=== PATIENT | male | born 1990 | race Caucasian/White ===

== ENCOUNTER 2017-12-25 13:29 | Emergency (ER) | payer OTHER ==
[2017-12-25 13:35] VITALS: BP 139/78; PULSE 85; TEMP 98.6
[2017-12-25 13:56] VITALS: RESP 16
[2017-12-25] MEDS ORDERED: KETOROLAC 30 MG/ML 1 ML VIAL IM STA (14:07)
--- NOTE | 2017-12-25 14:14 | ED ---
Chest Pain HPI - General Chief Complaint: Chest Pain Stated Complaint: rt rib pain Time Seen by Provider: 12/25/17 13:57 Source: patient Mode of arrival: ambulatory Limitations: no limitations - History of Present Illness Initial Comments: REY is a 27-year-old male presenting for right sided rib pain. He states that for the last couple weeks, he has been having intermittent coughing and had chills couple days ago but no fevers. He also denies any significant past medical problems and states that he does have ALLERGIES. He does feel a little bit short of breath but none now. Pt also denies any prolonged periods of immobility, CA, DVT/PE, estrogen use, or recent surgery. Patient states that the pain is a sharp crampy sensation that is worse with coughing, breathing, movement and very positional. Patient denies any chest pain - Related Data Previous Rx's Medication Instructions Recorded Ibuprofen [Motrin] 800 mg PO Q6HR PRN #20 tab 06/20/14 Albuterol Inhaler [Ventolin Hfa 1 - 2 puff INHALATION Q6HR PRN #1 12/25/17 Inhaler] inhaler Ibuprofen [Motrin] 400 mg PO Q6HR PRN #20 tab 12/25/17 Lidocaine 5% Patch [Lidoderm] 1 patch TOPICAL DAILY #5 patch 12/25/17 Methocarbamol [Robaxin] 500 mg PO TID #20 tab 12/25/17 Allergies Allergy/AdvReac Type Severity Reaction Status Date / Time No Known Allergies Allergy Verified 12/25/17 13:35 Review of Systems ROS Statement: Those systems with pertinent positive or pertinent negative responses have been documented in the HPI. Constitutional: Negative for chills, fatigue and fever. HENT: Negative for congestion. Respiratory: Negative for chest tightness, and wheezing. Positive for cough and shortness of breath Cardiovascular: Negative for chest pain and palpitations. Gastrointestinal: Negative for abdominal pain. Negative for abdominal distention , diarrhea, nausea and vomiting. Genitourinary: Negative for dysuria. Musculoskeletal: Negative for back pain, neck pain and neck stiffness. Positive for right rib pain Skin: Negative for color change. Neurological: Negative for dizziness, speech difficulty, weakness and light- headedness. Psychiatric/Behavioral: Negative for agitation and confusion. The patient is not nervous/anxious. ROS Other: All systems not noted in ROS Statement are negative. Past Medical History Past Medical History: No Reported History History of Any Multi-Drug Resistant Organisms: None Reported Past Surgical History: No Surgical Hx Reported Past Psychological History: Anxiety Smoking Status: Current every day smoker Past Alcohol Use History: Daily Past Drug Use History: Marijuana General Exam - General Exam Comments Initial Comments: Constitutional: Pt is oriented to person, place, and time. Pt appears well- developed and well-nourished. No distress. HENT: Head: Normocephalic and atraumatic. Eyes: EOM are normal. Neck: Normal range of motion. Neck supple. Cardiovascular: Normal rate, regular rhythm, S1 normal, S2 normal and normal heart sounds. Exam reveals no gallop and no friction rub. No murmur heard. Pulmonary/Chest: Effort normal and breath sounds normal. No tachypnea and no bradypnea. No respiratory distress. No rales noted. Faint bilateral wheezes noted at lung bases Abdominal: Soft. Bowel sounds are normal. Pt exhibits no shifting dullness, no distension, no pulsatile liver, no fluid wave, no abdominal bruit and no ascites. There is no tenderness. There is no rigidity, no rebound, no guarding, no tenderness at McBurney's point and negative Du's sign. Musculoskeletal: Normal range of motion. Tenderness to palpation on the right side that is reproducible along ribs 5 through 8 Neurological: Pt is alert and oriented to person, place, and time. No cranial nerve deficit. Skin: Skin is warm and dry. No rash noted. Pt is not diaphoretic. No erythema. No pallor. Psychiatric: Pt has a normal mood and affect. Pt behavior is normal. Thought content normal. Limitations: no limitations Course Vital Signs 12/25/17 12/25/17 13:32 13:54 Temperature 98.6 F Pulse Rate 85 Respiratory 18 16 Rate Blood Pressure 139/78 O2 Sat by Pulse 99 Oximetry Chest Pain MDM - MDM Patient had tenderness along the lower ribs that is reproducible worse with movement. It was explained to this is likely secondary to musculoskeletal strain and chest x-ray would not be warranted. Also, because the patient denied any chest pain or shortness of breath, EKG was not performed. Explained all labs and diagnostic test results and that we will discharge the patient home and patient is to follow up with PCP in 1-2 days and return to the ED if symptoms worsen. Pt is agreeable to plan. Disposition Clinical Impression: Rib pain on right side, Cough Disposition: HOME SELF-CARE Condition: Good Instructions: Costochondritis (ED) Prescriptions: Albuterol Inhaler [Ventolin Hfa Inhaler] 1 - 2 puff INHALATION Q6HR PRN #1 inhaler PRN Reason: Cough Ibuprofen [Motrin] 400 mg PO Q6HR PRN #20 tab PRN Reason: Pain Lidocaine 5% Patch [Lidoderm] 1 patch TOPICAL DAILY #5 patch Methocarbamol [Robaxin] 500 mg PO TID #20 tab Is patient prescribed a controlled substance at d/c from ED?: No Referrals: None,Stated [Primary Care Provider] - 1-2 days Time of Disposition: 14:12
== END 2017-12-25 14:44 | disposition home or self-care (01) ==
LOC: EC 13:29
DX: R07.81 Pleurodynia (principal); R05 Cough; R68.83 Chills (without fever); R06.2 Wheezing; F17.200 Nicotine dependence, unspecified, uncomplicated
CPT/HCPCS: 99284; 96372; J1885

== ENCOUNTER 2019-03-16 12:20 | Emergency (ER) | payer OTHER ==
[2019-03-16 12:46] VITALS: TEMP 97.7
[2019-03-16 13:58] VITALS: BP 126/56; PULSE 106; RESP 20
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
== END 2019-03-16 14:32 | disposition home or self-care (01) ==
LOC: EC 12:20
DX: R20.2 Paresthesia of skin (principal); F41.9 Anxiety disorder, unspecified; F17.200 Nicotine dependence, unspecified, uncomplicated; F12.929 Cannabis use, unspecified with intoxication, unspecified; K14.8 Other diseases of tongue
CPT/HCPCS: 99283

== ENCOUNTER 2019-04-26 21:44 | Emergency (ER) | payer OTHER ==
[2019-04-26] MEDS ORDERED: ERYTHROMYCIN 5 MG/GM OPHTH OINT 3.5 GM TUBE BOTH EYES STA (23:09)
--- NOTE | 2019-04-26 23:10 | ED ---
Eye Problem HPI - General Source: patient Mode of arrival: ambulatory Limitations: no limitations <Nena Dexter - Last Filed: 04/27/19 00:00> <Vandana Mauricio - Last Filed: 04/28/19 02:43> - General Chief complaint: Eye Problems Stated complaint: eye irritation Time Seen by Provider: 04/26/19 22:10 - History of Present Illness Initial comments: 29-year-old male presents emergency room for chief complaint of bilateral eye redness. Patient states both eyes feel irritated. He states he does smoke marijuana but denies do not usually feel this irritated. He states they feel dry. He states he does have some light sensitivity. Patient denies any eye pain. He denies any swelling around the eyes. Extraocular eye movements. Patient denies any vision loss or vision or diplopia. Patient denies any headache, welding, grindings, foreign body sensation, autoimmune diseases, recent travel sick contacts fevers or flulike symptoms. Patient has no other complaints, remaining ROS (-). (Nena Dexter) - Related Data Previous Rx's Medication Instructions Recorded Erythromycin Ophth Oint [Romycin 1 applic LEFT EYE QID 3 Days #1 04/26/19 Ophth Oint] tube Allergies Allergy/AdvReac Type Severity Reaction Status Date / Time No Known Allergies Allergy Verified 04/26/19 21:58 Review of Systems ROS Other: All systems not noted in ROS Statement are negative. <Nena Dexter - Last Filed: 04/27/19 00:00> ROS Other: All systems not noted in ROS Statement are negative. <Vandana Mauricio - Last Filed: 04/28/19 02:43> ROS Statement: Those systems with pertinent positive or pertinent negative responses have been documented in the HPI. Past Medical History Past Medical History: No Reported History History of Any Multi-Drug Resistant Organisms: None Reported Past Surgical History: No Surgical Hx Reported Past Psychological History: Anxiety Smoking Status: Current every day smoker Past Alcohol Use History: None Reported Past Drug Use History: Cocaine, Marijuana <Nena Dexter - Last Filed: 04/27/19 00:00> General Exam Limitations: no limitations <Nena Dexter - Last Filed: 04/27/19 00:00> - General Exam Comments Initial Comments: General: The patient is awake and alert, in no distress, and does not appear acutely ill. Eye: +3 mm pupils are equal, round and reactive to light, extra-ocular movements are intact. No nystagmus. There is normal conjunctiva bilaterally. No signs of icterus. No areas of uptake of fluorescein examination. No pain with extraocular eye movements. Minimal photophobia. Patient has conjunctival injection bilaterally. IOP15 OU. Ears, nose, mouth and throat: There are moist mucous membranes and no oral lesions. Neck: The neck is supple, there is no tenderness or JVD. Cardiovascular: There is a regular rate and rhythm. No murmur, rub or gallop is appreciated. Respiratory: Lungs are clear to auscultation, respirations are non-labored, breath sounds are equal. No wheezes, stridor, rales, or rhonchi. Gastrointestinal: Soft, non-distended, non-tender abdomen without masses or organomegaly noted. There is no rebound or guarding present. Musculoskeletal: Normal ROM, no tenderness. Strength 5/5. Sensation intact. Pulses equal bilaterally 2+. Neurological: A&O x 3. CN II-XII intact, There are no obvious motor or sensory deficits. Coordination appears grossly intact. Speech is normal. Skin: Skin is warm and dry and no rashes or lesions are noted. Psychiatric: Cooperative, appropriate mood & affect, normal judgment. (Nena Dexter) Course Vital Signs 04/26/19 04/26/19 21:54 23:27 Temperature 97.6 F 97.2 F L Pulse Rate 121 H 88 Respiratory 18 20 Rate Blood Pressure 119/71 116/68 O2 Sat by Pulse 99 99 Oximetry Medical Decision Making <Nena Dexter - Last Filed: 04/27/19 00:00> <Vandana Mauricio - Last Filed: 04/28/19 02:43> - Medical Decision Making 29yo male presenting to the ER for evaluation of b/l eye redness, hx of marijuana use. Patient may have corneal irritation. Patient evaluated by Dr. Mauricio who recommended erythromycin lubricant eyedrop. Patient is agreeable to this care plan patient is given ophthalmology follow-up. Return parameters were discussed the patient was discharged appearing well (Nena Dexter) I personally saw and evaluated the patient. I suspect the patient has a chemical conjunctivitis secondary to smoke exposure. However patient's been rubbing his eyes a lot Will treat. Please with erythromycin ointment for symptomatically care and prevention of bacterial conjunctivitis. (Vandana Mauricio) Disposition Is patient prescribed a controlled substance at d/c from ED?: No Time of Disposition: 23:09 <Nena Dexter - Last Filed: 04/27/19 00:00> <Vandana Mauricio - Last Filed: 04/28/19 02:43> Clinical Impression: Conjunctivitis Disposition: HOME SELF-CARE Instructions (If sedation given, give patient instructions): Eye Lubricant (Into the eye), Conjunctivitis (ED) Additional Instructions: Please use medication as discussed. Please follow-up with ophthalmology in one to 2 days. Please return to emergency room if the symptoms increase or worsen or for any other concerns. Prescriptions: Erythromycin Ophth Oint [Romycin Ophth Oint] 1 applic LEFT EYE QID 3 Days #1 tube Referrals: None,Stated [Primary Care Provider] - 1-2 days Jaylen Chun MD [STAFF PHYSICIAN] - 1-2 days
[2019-04-26 23:29] VITALS: BP 116/68; PULSE 88; RESP 20; TEMP 97.2
== END 2019-04-26 23:27 | disposition home or self-care (01) ==
LOC: EC 21:44
DX: H10.9 Unspecified conjunctivitis (principal); F17.200 Nicotine dependence, unspecified, uncomplicated
CPT/HCPCS: 99283

== ENCOUNTER 2019-07-28 11:45 | Emergency (ER) | payer OTHER ==
[2019-07-28 12:29] VITALS: TEMP 98.1
--- NOTE | 2019-07-28 12:56 | XR ---
EXAMINATION TYPE: XR chest 2V DATE OF EXAM: 07/28/2019 COMPARISON: Prior chest x-ray 06/20/2014 HISTORY: Cough, congestion, fever TECHNIQUE: Frontal and lateral views of the chest are obtained. FINDINGS: In the substernal location on the lateral view there is airspace disease present. IMPRESSION: Findings compatible with pneumonia, likely in the lingula
--- NOTE | 2019-07-28 13:57 | ED ---
URI HPI - General Chief Complaint: Upper Respiratory Infection Stated Complaint: Poss Pneumonia, Numbness in toes/hands Time Seen by Provider: 07/28/19 13:29 Source: patient Mode of arrival: ambulatory Limitations: no limitations - History of Present Illness Initial Comments: Patient is a 29-year-old male presenting to emergency Department with complaints of a cough x 1 week. Patient is also been having fever and chills at home as well as mild shortness of breath. Patient denies history of asthma, COPD. Patient denies chest pain, nausea, vomiting, abdominal pain. Patient has been taking Motrin for his fever. Patient feels very fatigued as well. He is also complaining of mild, intermittent numbness into his fingers and occasionally into his toes. Patient has no other complaints at this time. On arrival to the ER, his vital signs are stable. - Related Data Previous Rx's Medication Instructions Recorded Albuterol Inhaler [Ventolin Hfa 1 - 2 puff INHALATION RT-Q6H PRN 07/28/19 Inhaler] #1 inhaler Azithromycin [Zithromax Z-pack] 0 mg PO DIRECTED #1 pack 07/28/19 Allergies Allergy/AdvReac Type Severity Reaction Status Date / Time No Known Allergies Allergy Verified 07/28/19 12:30 Review of Systems ROS Statement: Those systems with pertinent positive or pertinent negative responses have been documented in the HPI. ROS Other: All systems not noted in ROS Statement are negative. Past Medical History Past Medical History: No Reported History History of Any Multi-Drug Resistant Organisms: None Reported Past Surgical History: No Surgical Hx Reported Past Psychological History: Anxiety Smoking Status: Current every day smoker Past Alcohol Use History: None Reported Past Drug Use History: Cocaine, Marijuana General Exam - General Exam Comments Initial Comments: GENERAL: Well-appearing, well-nourished and in no acute distress. HEAD: Atraumatic, normocephalic. EYES: Pupils equal round and reactive to light, extraocular movements intact, sclera anicteric, conjunctiva are normal. ENT: TMs normal, nares patent, oropharynx clear without exudates. Moist mucous membranes. NECK: Normal range of motion, supple without lymphadenopathy or JVD. LUNGS: Breath sounds clear to auscultation bilaterally and equal. No wheezes rales or rhonchi. HEART: Regular rate and rhythm without murmurs, rubs or gallops. ABDOMEN: Soft, nontender, normoactive bowel sounds. No guarding, no rebound. No masses appreciated. : Deferred EXTREMITIES: Normal range of motion, no pitting or edema. No clubbing or cyanosis. NEUROLOGICAL: Cranial nerves II through XII grossly intact. Normal speech, normal gait. Sensation equal in bilateral lower and upper extremities. 5 out of 5 strength in upper and lower extremities. PSYCH: Normal mood, normal affect. SKIN: Warm, Dry, normal turgor, no rashes or lesions noted. Limitations: no limitations Course Vital Signs 07/28/19 07/28/19 12:23 14:00 Temperature 98.1 F Pulse Rate 98 81 Respiratory 20 18 Rate Blood Pressure 109/66 131/70 O2 Sat by Pulse 96 99 Oximetry Medical Decision Making - Medical Decision Making Patient is a 29-year-old male presenting with a cough and fever times one week. Exam is unremarkable. Influenza is negative. Chest x-ray reveals pneumonia. Patient will be started on azithromycin as well as an inhaler for at home. Patient will continue with Motrin for fever control. Return parameters were discussed with the patient and he verbalized understanding. He is agreement with this plan of care. Patient is stable for discharge at this time. Case discussed with Dr. Genao. - Lab Data Lab Results 07/28/19 Range/Units 12:30 Influenza Type A RNA Not Detected (Not Detectd) Influenza Type B (PCR) Not Detected (Not Detectd) Disposition Clinical Impression: Cough, Pneumonia Disposition: HOME SELF-CARE Condition: Stable Instructions (If sedation given, give patient instructions): Community Acquired Pneumonia (ED) Additional Instructions: Please return to the Emergency Department if symptoms worsen or any other concerns. Take antibiotic as prescribed. Use inhaler as needed. Continue with Motrin as needed for fever control. Prescriptions: Albuterol Inhaler [Ventolin Hfa Inhaler] 1 - 2 puff INHALATION RT-Q6H PRN #1 inhaler PRN Reason: Cough Azithromycin [Zithromax Z-pack] 0 mg PO DIRECTED #1 pack Is patient prescribed a controlled substance at d/c from ED?: No Referrals: None,Stated [Primary Care Provider] - 1-2 days
[2019-07-28 14:25] VITALS: BP 131/70; PULSE 81; RESP 18
== END 2019-07-28 14:22 | disposition home or self-care (01) ==
LOC: EC 11:45
DX: J18.9 Pneumonia, unspecified organism (principal); R20.0 Anesthesia of skin; F17.200 Nicotine dependence, unspecified, uncomplicated
CPT/HCPCS: 71046; 87502; 99283

== ENCOUNTER 2019-08-20 17:55 | Emergency (ER) | payer OTHER ==
[2019-08-20 18:11] VITALS: RESP 18
--- NOTE | 2019-08-20 18:42 | ED ---
General Adult HPI - General Chief complaint: Recheck/Abnormal Lab/Rx Stated complaint: poor feet circulation/numbness Time Seen by Provider: 08/20/19 18:19 Source: patient Mode of arrival: ambulatory Limitations: no limitations - History of Present Illness Initial comments: Dictation was produced using [employer] dictation software. please excuse any g rammatical, word or spelling errors. Chief Complaint: 29-year-old male past medical history of tobacco abuse presents with tingling to his bilateral feet. History of Present Illness: 29-year-old male presents today with tingling and discoloration to his bilateral lower feet. Patient states he notices discoloration of his toes. Patient reports that he feels some paresthesias to all his toes. Patient states his feet feel cold and also his hands. Is a chronic tobacco abuser since age of 12. Patient continues to smoke. Patient also consumes marijuana. Denies any other medical problems. The ROS documented in this emergency department record has been reviewed and confirmed by me. Those systems with pertinent positive or negative responses have been documented in the HPI. All other systems are other negative and/or noncontributory. PHYSICAL EXAM: General Impression: Alert and oriented x3, not in acute distress HEENT: Normocephalic atraumatic, extra-ocular movements intact, pupils equal and reactive to light bilaterally, mucous membranes moist. Cardiovascular: Heart regular rate and rhythm, S1&S2 audible, no murmurs, rubs or gallops Chest: Lungs clear to auscultation bilaterally, no rhonchi, no wheeze, no rales Abdomen: Bowel sounds present, abdomen soft, non-tender, non-distended, no organomegaly Musculoskeletal: Pulses present and equal in all extremities, no peripheral edema Bilateral lower feet: 2+ DP and PT pulses, slight discoloration at the distal toes Motor: no focal deficits noted Neurological: CN II-XII grossly intact, no focal motor or sensory deficits noted Skin: Intact with no visualized rashes Psych: Normal affect and mood ED course: 29-year-old male clinical presentation concerning for reynaud's disease. Vital signs upon arrival are within acceptable limits. Patient is given the packs to his toes. Laboratory evaluation obtained. CBC, metabolic panel is unremarkable. No electrolyte derangement. Discussed with patient that he likely has reynaud's disease. He is also counseled on tobacco cessation. Patient was reevaluated in emergency department after couple hours of ED observation. He has improved coloration to his toes. Patient is told to avoid cold temperatures and to use topical nitrates when necessary symptoms. Lj maynard given prescription for topical nitrates. He is advised follow-up with his private care physician upon discharge. - Related Data Previous Rx's Medication Instructions Recorded Albuterol Inhaler [Ventolin Hfa 1 - 2 puff INHALATION RT-Q6H PRN 07/28/19 Inhaler] #1 inhaler Azithromycin [Zithromax Z-pack] 0 mg PO DIRECTED #1 pack 07/28/19 amLODIPine [Norvasc] 5 mg PO DAILY PRN 12 Days #12 tab 08/20/19 Allergies Allergy/AdvReac Type Severity Reaction Status Date / Time No Known Allergies Allergy Verified 07/28/19 12:30 Review of Systems ROS Statement: Those systems with pertinent positive or pertinent negative responses have been documented in the HPI. ROS Other: All systems not noted in ROS Statement are negative. Past Medical History Past Medical History: Pneumonia History of Any Multi-Drug Resistant Organisms: None Reported Past Surgical History: No Surgical Hx Reported Past Psychological History: Anxiety Smoking Status: Current every day smoker Past Alcohol Use History: None Reported Past Drug Use History: Cocaine, Marijuana General Exam Limitations: no limitations Course Vital Signs 08/20/19 18:06 Temperature 97.7 F Pulse Rate 106 H Respiratory 18 Rate Blood Pressure 137/85 O2 Sat by Pulse 100 Oximetry Medical Decision Making - Lab Data Result diagrams: 08/20/19 18:45 08/20/19 18:45 Lab Results 08/20/19 08/20/19 Range/Units 18:45 18:45 WBC 8.1 (3.8-10.6) k/uL RBC 4.74 (4.30-5.90) m/uL Hgb 14.3 (13.0-17.5) gm/dL Hct 42.0 (39.0-53.0) % MCV 88.7 (80.0-100.0) fL MCH 30.1 (25.0-35.0) pg MCHC 33.9 (31.0-37.0) g/dL RDW 12.7 (11.5-15.5) % Plt Count 176 (150-450) k/uL Neutrophils % 53 % Lymphocytes % 36 % Monocytes % 6 % Eosinophils % 1 % Basophils % 2 % Neutrophils # 4.3 (1.3-7.7) k/uL Lymphocytes # 2.9 (1.0-4.8) k/uL Monocytes # 0.5 (0-1.0) k/uL Eosinophils # 0.1 (0-0.7) k/uL Basophils # 0.1 (0-0.2) k/uL Sodium 136 L (137-145) mmol/L Potassium 3.7 (3.5-5.1) mmol/L Chloride 102 (98-107) mmol/L Carbon Dioxide 25 (22-30) mmol/L Anion Gap 9 mmol/L BUN 15 (9-20) mg/dL Creatinine 0.83 (0.66-1.25) mg/dL Est GFR (CKD-EPI)AfAm >90 (>60 ml/min/1.73 sqM) Est GFR (CKD-EPI)NonAf >90 (>60 ml/min/1.73 sqM) Glucose 94 (74-99) mg/dL Calcium 9.5 (8.4-10.2) mg/dL Phosphorus 3.5 (2.5-4.5) mg/dL Magnesium 1.9 (1.6-2.3) mg/dL Disposition Clinical Impression: Raynaud disease Disposition: HOME SELF-CARE Condition: Good Instructions (If sedation given, give patient instructions): Raynaud Disease (ED) Prescriptions: amLODIPine [Norvasc] 5 mg PO DAILY PRN 12 Days #12 tab PRN Reason: raynauds phenomonon Is patient prescribed a controlled substance at d/c from ED?: No Referrals: None,Stated [Primary Care Provider] - 1-2 days Time of Disposition: 19:52
[2019-08-20 19:01] LABS: Basophils # (A) 0.1 k/uL (0-0.2); Basophils % (A) 2 %; Eosinophils # (A) 0.1 k/uL (0-0.7); Eosinophils % (A) 1 %; HGB 14.3 gm/dL (13.0-17.5); Lymphocytes # (A) 2.9 k/uL (1.0-4.8); Lymphocytes % (A) 36 %; MCH 30.1 pg (25.0-35.0); MCHC 33.9 g/dL (31.0-37.0); MCV 88.7 fL (80.0-100.0); Mean Platelet Volume 7.7; Monocytes # (A) 0.5 k/uL (0-1.0); Monocytes % (A) 6 %; Neutrophils # (A) 4.3 k/uL (1.3-7.7); Neutrophils % (A) 53 %; Platelet Count 176 k/uL (150-450); RBC 4.74 m/uL (4.30-5.90); RDW 12.7 % (11.5-15.5); WBC 8.1 k/uL (3.8-10.6)
[2019-08-20 19:17] LABS: African American GFR (CKD) >90 (>60 ml/min/1.73 sqM); Anion Gap 9 mmol/L; Blood Urea Nitrogen 15 mg/dL (9-20); Calcium 9.5 mg/dL (8.4-10.2); Carbon Dioxide 25 mmol/L (22-30); Chloride 102 mmol/L (98-107); Glucose 94 mg/dL (74-99); Magnesium 1.9 mg/dL (1.6-2.3); Non-African American GFR(CKD) >90 (>60 ml/min/1.73 sqM); Phosphorus 3.5 mg/dL (2.5-4.5); Potassium 3.7 mmol/L (3.5-5.1); Sodium 136 mmol/L (137-145)
[2019-08-20 20:02] VITALS: BP 131/78; PULSE 97; TEMP 98.2
== END 2019-08-20 20:02 | disposition home or self-care (01) ==
LOC: EC 17:55
DX: I73.00 Raynaud's syndrome without gangrene (principal); F17.200 Nicotine dependence, unspecified, uncomplicated; Z71.6 Tobacco abuse counseling
CPT/HCPCS: 36415; 80048; 83735; 84100; 85025; 99284

== ENCOUNTER 2024-08-02 13:15 | Emergency (ER) | payer OTHER ==
--- NOTE | 2024-08-02 14:00 | XR ---
EXAMINATION TYPE: XR chest 2V DATE OF EXAM: 08/02/2024 1:49 PM COMPARISON: None. CLINICAL INDICATION: Male, 34 years old with history of SOB, TECHNIQUE: XR chest 2V view(s) obtained. FINDINGS: The heart size is normal. The pulmonary vasculature is normal. The lungs are clear. IMPRESSION: 1. No acute pulmonary process. [facility], , 08/02/2024 1:57 PM
--- NOTE | 2024-08-02 14:10 | ED ---
General Adult HPI - General Source: patient, RN notes reviewed Mode of arrival: ambulatory Limitations: no limitations <Teressa Grover - Last Filed: 08/02/24 14:09> - General Source: patient, RN notes reviewed Mode of arrival: ambulatory Limitations: no limitations <Luis Angel Polo - Last Filed: 08/02/24 16:54> - General Chief complaint: Chest Pain Stated complaint: Rib pain Time Seen by Provider: 08/02/24 14:09 - History of Present Illness Initial comments: Quick [id number] male with right rib pain x 5 days. States he woke up with pain in the ribs worse with deep breathing and movement. Denies trauma or injury. Denies chest pain or shortness of breath. (Teressa Grover) Patient is a 34-year-old male presenting to the emergency department with concern for right rib pain. Onset of symptoms was around 5 days ago. Discomfort increases with deep breaths and movements. No cough. No upper respiratory symptoms. Patient denies any dyspnea. No abdominal pain. No hi story of similar symptoms previously (Luis Angel Polo) - Related Data Previous Rx's Medication Instructions Recorded Albuterol Inhaler [Ventolin Hfa 1 - 2 puff INHALATION RT-Q6H PRN 07/28/19 Inhaler] #1 inhaler Azithromycin [Zithromax Z-pack (6 0 mg PO DIRECTED #1 pack 07/28/19 tabs)] amLODIPine [Norvasc] 5 mg PO DAILY PRN 12 Days #12 tab 08/20/19 Cyclobenzaprine [Flexeril] 10 mg PO TID PRN #12 tablet 08/02/24 Ibuprofen [Motrin] 600 mg PO Q6HR PRN #20 tab 08/02/24 Allergies Allergy/AdvReac Type Severity Reaction Status Date / Time No Known Allergies Allergy Verified 08/02/24 13:32 Review of Systems ROS Other: All systems not noted in ROS Statement are negative. <Teressa Grover - Last Filed: 08/02/24 14:09> ROS Other: All systems not noted in ROS Statement are negative. Constitutional: Denies: fever Eyes: Denies: eye pain ENT: Denies: ear pain Respiratory: Reports: as per HPI Cardiovascular: Reports: as per HPI Endocrine: Denies: fatigue Gastrointestinal: Denies: abdominal pain <Luis Angel Polo - Last Filed: 08/02/24 16:54> ROS Statement: Those systems with pertinent positive or pertinent negative responses have been documented in the HPI. Past Medical History Past Medical History: Pneumonia History of Any Multi-Drug Resistant Organisms: None Reported Past Surgical History: No Surgical Hx Reported Past Psychological History: Anxiety Smoking Status: Vaper Past Alcohol Use History: None Reported Past Drug Use History: Cocaine, Marijuana <Teressa Grover - Last Filed: 08/02/24 14:09> General Exam Limitations: no limitations <Teressa Grover - Last Filed: 08/02/24 14:09> Limitations: no limitations General appearance: alert, in no apparent distress Head exam: Present: normocephalic Eye exam: Present: normal appearance Neck exam: Present: normal inspection Respiratory exam: Present: normal lung sounds bilaterally, chest wall tenderness (Right lower lateral ribs). Absent: respiratory distress Cardiovascular Exam: Present: regular rate, normal rhythm, normal heart sounds. Absent: tachycardia Expanded Peripheral pulses: 2+: Radial (R), Radial (L), Posterior Tibialis (R), Posterior Tibialis (L) GI/Abdominal exam: Present: soft. Absent: distended, tenderness, guarding, rebound, rigid Extremities exam: Present: normal inspection. Absent: pedal edema, calf tenderness Back exam: Present: normal inspection Neurological exam: Present: alert Psychiatric exam: Present: normal affect, normal mood Skin exam: Present: normal color <Luis Angel Polo - Last Filed: 08/02/24 16:54> - General Exam Comments Initial Comments: Visual Physical Exam Vital signs reviewed General: Well-appearing, nontoxic, no acute distress. Head: Normocephalic, atraumatic Eyes: PERRLA, EOMI ENT: Airway patent Chest: Nonlabored breathing Skin: No visual rash, normal skin tone Neuro: Alert and oriented 3 Musculoskeletal: No gross abnormalities (Teressa Grover) Course Vital Signs 08/02/24 08/02/24 13:33 16:44 Temperature 98.1 F 98.0 F Pulse Rate 101 H 74 Respiratory 20 16 Rate Blood Pressure 131/84 124/76 O2 Sat by Pulse 98 98 Oximetry Medical Decision Making <Teressa Grover - Last Filed: 08/02/24 14:09> <Luis Angel Polo - Last Filed: 08/02/24 16:54> - Medical Decision Making I completed the quick note portion of this chart signed Teressa Grover PA-C (Teressa Grover) Was pt. sent in by a medical professional or institution (, [facility], GERIATRIC AIDE, urgent care, hospital, or fdc...) When possible be specific @ -No Did you speak to anyone other than the patient for history (EMS, parent, family, police, friend...)? What history was obtained from this source @ -No Did you review nursing and triage notes (agree or disagree)? Why? @ -I reviewed and agree with nursing and triage notes Were old charts reviewed (outside hosp., previous admission, EMS record, old EKG, old radiological studies, urgent care reports/EKG's, fdc records)? Report findings @ -No old charts were reviewed Differential Diagnosis (chest pain, altered mental status, abdominal pain women, abdominal pain men, vaginal bleeding, weakness, fever, dyspnea, syncope, headache, dizziness, GI bleed, back pain, seizure, CVA, palpatations, mental health, musculoskeletal)? @ -Differential Chest Pain: Stable Angina, Unstable Angina, STEMI, NSTEMI Aortic Dissection, Pneumothorax, Musculoskeletal, Esophageal Spasm GERD, Cholecystitis, Pancreatitis, Zoster, this is not meant to be an all-inclusive list. EKG interpreted by me (3pts min.). @ -As above X-rays interpreted by me (1pt min.). @ -Chest x-ray and right rib x-ray does not reveal acute abnormality CT interpreted by me (1pt min.). @ -None done U/S interpreted by me (1pt. min.). @ -None done What testing was considered but not performed or refused? (CT, X-rays, U/S, labs )? Why? @ -Consider D-dimer however on repeat vital signs patient is PERC negative What meds were considered but not given or refused? Why? @ -None Did you discuss the management of the patient with other professionals (professionals i.e. [facility] Mccullough, GERIATRIC AIDE, lab, RT, psych nurse, hospice social worker, marina manager, teacher, investigation officer, case planner)? Give summary @ -No Was smoking cessation discussed for >3mins.? @ -No Was critical care preformed (if so, how long)? @ -No Were there social determinants of health that impacted care today? How? (Homelessness, low income, unemployed, alcoholism, drug addiction, transportation, low edu. Level, literacy, decrease access to med. care, assisted, rehab)? @ -No Was there de-escalation of care discussed even if they declined (Discuss DNR or withdrawal of care, Hospice)? DNR status @ -No What co-morbidities impacted this encounter? (DM, HTN, Smoking, COPD, CAD, Cancer, CVA, ARF, Chemo, Hep., AIDS, mental health diagnosis, sleep apnea, morbid obesity)? @ -None Was patient admitted / discharged? Hospital course, mention meds given and route, prescriptions, significant lab abnormalities, going to OR and other pertinent info. @ -Patient presents with right chest wall tenderness. No dyspnea. Patient and family updated on results. Patient will be discharged with anti-inflammatories and muscle relaxers as needed. Work note provided for today as requested. Patient will have repeat heart rate prior to discharge. Patient is not tachycardic and auscultation Undiagnosed new problem with uncertain prognosis? @ -No Drug Therapy requiring intensive monitoring for toxicity (Heparin, Nitro, Insulin, Cardizem)? @ -No Were any procedures done? @ -No Diagnosis/symptom? @ -Chest wall pain Acute, or Chronic, or Acute on Chronic? @ -Acute Uncomplicated (without systemic symptoms) or Complicated (systemic symptoms)? @ -Default Side effects of treatment? @ -No Exacerbation, Progression, or Severe Exacerbation? @ -No Poses a threat to life or bodily function? How? (Chest pain, [place], [place], pneumonia, PE, COPD, DKA, ARF, appy, cholecystitis, CVA, Diverticulitis, Homicidal, Suicidal, threat to staff... and all critical care pts) @ -No (Luis Angel Polo) Disposition <Teressa Grover - Last Filed: 08/02/24 14:09> Is patient prescribed a controlled substance at d/c from ED?: No Time of Disposition: 16:49 <Luis Angel Polo - Last Filed: 08/02/24 16:54> Clinical Impression: Chest wall pain Disposition: HOME SELF-CARE Condition: Stable Instructions (If sedation given, give patient instructions): Chest Wall Pain (ED) Additional Instructions: Prescription sent to pharmacy. Please follow-up with primary care physician in the next day or 2 for recheck. Return for difficulty breathing, fever, worsening or changing symptoms or other concerns. Prescriptions: Cyclobenzaprine [Flexeril] 10 mg PO TID PRN #12 tablet PRN Reason: Pain Ibuprofen [Motrin] 600 mg PO Q6HR PRN #20 tab PRN Reason: Pain Referrals: None,Stated [Primary Care Provider] - 1-2 days Jony Hernandez MD [STAFF PHYSICIAN] - 1-2 days Forms: Area PCPs
--- NOTE | 2024-08-02 14:39 | XR ---
EXAMINATION TYPE: XR ribs RT DATE OF EXAM: 08/02/2024 2:23 PM COMPARISON: None. CLINICAL INDICATION: Male, 34 years old with history of right rib pain, pain TECHNIQUE: 2 view(s) obtained. FINDINGS: No acute displaced fractures are evident. Some very subtle anterior lateral fourth and fifth right ri b thickening is present suggesting old fracture at these locations. No pneumothorax is evident. IMPRESSION: 1. No acute osseous abnormality right ribs [facility], , 08/02/2024 2:37 PM
[2024-08-02 16:46] VITALS: BP 124/76; PULSE 74; RESP 16; TEMP 98
[2024-08-02] MEDS: KETOROLAC 15 MG/ML 1 ML VIAL IM STA (17:07)
== END 2024-08-02 17:11 | disposition home or self-care (01) ==
LOC: EC 13:15
DX: R07.89 Other chest pain (principal); F17.290 Nicotine dependence, other tobacco product, uncomplicated
CPT/HCPCS: 71100; 71046; 99285; 96372; J1885